=== PATIENT | female | born 1965 | race Two or more races ===

== ENCOUNTER 2016-10-03 22:22 | Observation (INO) | payer OTHER ==
[2016-10-03 22:28] VITALS: BMI 39.4
[2016-10-03] MEDS ORDERED: ASPIRIN 81 MG CHEWABLE TABLETS PO ONE (22:45)
[2016-10-03] MEDS ORDERED: ASPIRIN 81 MG CHEWABLE TABLETS ONE (22:51)
--- NOTE | 2016-10-03 22:54 | PDOC ---
History of Present Illness - General Chief Complaint: Chest Pain Stated Complaint: CHEST PAIN Time Seen by Provider: 10/03/16 22:26 History Source: Patient Exam Limitations: No Limitations - History of Present Illness Initial Comments: 10/03/16 22:49 51 Y F OBESE, NO SIG PMHX OR OTHER RISK FACTORS FOR CAD, PTE C/O SUDDEN ONSET LEFT SIDED CHEST PRESSURE, SOB, AND LT ARM HEAVINESS SINCE 9-9:30 PM TONITE. STS NEVER HAD SIMILAR PAIN IN THE PAST. NO N/V. NO PALPITATIONS. PAIN DOES NOT RADIATE. NOT CHANGED BY ACTIVITY. IN ED. IN NAD. HD STABLE Past History - Past Medical History Allergies/Adverse Reactions: Allergies Allergy/AdvReac Type Severity Reaction Status Date / Time No Known Allergies Allergy Verified 02/20/16 17:40 Home Medications: Ambulatory Orders Lisdexamfetamine Dimesylate [Vyvanse] 80 mg PO DAILY 02/20/16 Multivit-Min/Iron Fum/Folic AC [Qoarm-Huepjwa-Brcsagub Tablet] 1 tab PO DAILY Acetaminophen [Tylenol .Regular Strength -] 650 mg PO Q4H PRN #0 tablet Clonazepam [Klonopin -] 1 mg PO TID PRN #0 tablet MDD 3mg 02/24/16 Lurasidone HCl [Latuda -] 60 mg PO HS tablet 02/24/16 Psychiatric Problems: Yes (ANXIETY,ADHD) - Surgical History Abdominal Surgery: Yes (HERNIA) Appendectomy: Yes - Psycho/Social/Smoking Cessation Hx Anxiety: Yes Suicidal Ideation: No Smoking History: Former smoker Have you smoked in the past 12 months: No If you are a former smoker, when did you quit?: 15 YEARS AGO Information on smoking cessation initiated: No Hx Alcohol Use: No Drug/Substance Use Hx: No Substance Use Type: None Review of Systems - Review of Systems Able to Perform ROS?: Yes Is the patient limited Setswana proficient: No Constitutional: No: Symptoms Reported HEENTM: No: Symptoms Reported Respiratory: Yes: See HPI. No: Symptoms reported Cardiac (ROS): Yes: See HPI. No: Symptoms Reported ABD/GI: No: Symptoms Reported Integumentary: No: Symptoms Reported *Physical Exam - Vital Signs Last Vital Signs Temp Pulse Resp BP Pulse Ox 97.7 F 76 18 146/85 96 10/03/16 22:26 03/22/17 22:26 10/03/16 22:26 10/03/16 22:26 10/03/16 22:26 - Physical Exam General Appearance: Yes: Nourished, Appropriately Dressed. No: Apparent Distress HEENT: positive: Normal ENT Inspection Neck: positive: Supple. negative: Tender, Carotid bruit Respiratory/Chest: positive: Chest Tender (SLIGHTLY OVER LEFT SIDE), Lungs Clear , Normal Breath Sounds. negative: Respiratory Distress Cardiovascular: positive: Regular Rhythm, Regular Rate Gastrointestinal/Abdominal: positive: Normal Bowel Sounds, Soft. negative: Tender Musculoskeletal: positive: Normal Inspection Extremity: positive: Normal Capillary Refill. negative: Pedal Edema Integumentary: positive: Normal Color Neurologic: positive: Fully Oriented, Alert, Normal Mood/Affect, Normal Response , Motor Strength 5/5 Heart Score/ECG Review - History History: Slightly suspicious - Electrocardiogram EKG: Normal - Age Age: 45-65 - Risk Factors Risk Factors Heart Score: Yes Hx Obesity Based on the list above the patient has:: 1-2 risk factors - [place]: Normal - P and PA Prominent R with upright T in V1 (true posterior OR): No - QRS Poor R Wave Progression: No Q Wave Present: No - ST and T Early Repolarization: No Non Specific ST-T Wave changes: No - ECG Impressions Normal ECG: Yes Eligibility Checklist For AMI - INCLUSION CRITERIA Prolonged (>30 minutes)ischemic pain: Yes 12 Lead ECG indicates AMI: No ST elevation >1 mm in at least 2 limb leads: No ST elevation>2 mm in at least 2 contiguous precordial leads: No LBBB with clinical symptoms consistent with an AMI: No - EXCLUSION CRITERIA Active internal bleeding or hx of hemorrhagic diathesis: No Known bleeding diathesis: No Major surgery or serious trauma within the previous 6 weeks: No History of cerebrovascular accident(CVA): No History of central nervous system structural abnormality: No History of malignant hypertension or uncontrolled HTN: No Hemostatic defects secondary to severe hepatic/renal disease: No Diabetic hemorrhagic retinopathy: No or recent delivery(within 6 weeks): No Patients currently receiving oral anticoagulants(INR>2): No ED Treatment Course - RADIOLOGY Radiology Studies Ordered: Category Date Time Status CHEST PA & LAT [RAD] Stat Radiology 10/03/16 22:46 Ordered Progress Note - Progress Note Progress Note: LOW SUSP BUT NO OBVIOUS CAUSE. HISTORY CONCERNING WILL ADMIT TO R/O *DC/Admit/Observation/Transfer Diagnosis at time of Disposition: Chest pain with low risk of acute coronary syndrome - Discharge Dispostion Condition at time of disposition: Stable Admit: Yes
[2016-10-03] MEDS ORDERED: NITROGLYCERIN SUBLINGUAL 1/150 0.4 MG TAB SL ONE (22:57)
[2016-10-03] MEDS ORDERED: NITROGLYCERIN SUBLINGUAL 1/150 0.4 MG TAB ONE (23:11)
[2016-10-03 23:22] LABS: BASOPHIL 2.1 % (0-2.0); EOSINOPHIL 4.1 % (0-4.5); MCH 29.6 pg (25.7-33.7); MCHC 34.7 g/dl (32.0-36.0); MEAN CELL VOLUME 85.4 fl (80-96); MEAN PLT VOLUME 8.7 fl (7.5-11.1); NEUTROPHILS 54.2 % (42.8-82.8); PLATELET COUNT 255 K/MM3 (134-434); RDW 12.5 % (11.6-15.6); WHITE BLOOD COUNT 9.1 K/mm3 (4.0-10.0)
[2016-10-03 23:26] LABS: INR 1.27 (0.82-1.09); PROTHROMBIN TIME (PATIENT) 14.2 SEC (10.2-13.0)
[2016-10-03 23:32] LABS: ALBUMIN 3.7 g/dl (3.5-5.0); ALK PHOS 70 U/L (32-92); ANION GAP 6 (8-16); CALCIUM 8.4 mg/dl (8.4-10.2); CO2 26 mmol/L (22-28); CREATININE 0.7 mg/dl (0.6-1.3); GLUCOSE,RANDOM 129 mg/dl (74-106); MAGNESIUM 1.9 mg/dL (1.8-2.4); SGOT/AST 37 U/L (10-42); SGPT/ALT 21 U/L (10-40); TOT PROT 6.2 g/dl (6.4-8.3)
[2016-10-03 23:33] LABS: CPK(DFH) 200 IU/L (26-140)
[2016-10-03 23:40] LABS: TROPONIN I (DFP) < 0.03 ng/ml (0.03-0.50)
[2016-10-03 23:42] LABS: BILIRUBIN,TOTAL < 0.3 mg/dl (0.2-1.0)
[2016-10-04 07:04] VITALS: BP 120/51; PULSE 80; TEMP 99
[2016-10-04 08:39] LABS: CPK(DFH) 145 IU/L (26-140)
[2016-10-04 09:28] LABS: TROPONIN I (DFP) < 0.03 ng/ml (0.03-0.50)
[2016-10-04] MEDS ORDERED: VYVANSE 40 MG PO SCH (10:00)
--- NOTE | 2016-10-04 12:22 | HP ---
Admitting History and Physical - Primary Care Physician PCP: Maico Morgan - Admission Chief Complaint: chest pain History of Present Illness: 51 y o female came to er for chest pressure, sob , left arm heaviness.no nausea or any other symptom never had thi skind of pain before - Past Medical History ...LMP: 01/29/16 Psych: Yes: Anxiety, Other (adhd) - Smoking History Smoking history: Former smoker Have you smoked in the past 12 months: No If you are a former smoker, when did you quit?: 15 YEARS AGO - Alcohol/Substance Use Hx Alcohol Use: No Home Medications - Allergies Allergies/Adverse Reactions: Allergies Allergy/AdvReac Type Severity Reaction Status Date / Time No Known Allergies Allergy Verified 02/20/16 17:40 - Home Medications Home Medications: Ambulatory Orders Lisdexamfetamine Dimesylate [Vyvanse] 80 mg PO DAILY 02/20/16 Multivit-Min/Iron Fum/Folic AC [Tzwqg-Qqmxlwz-Bmtovquz Tablet] 1 tab PO DAILY Acetaminophen [Tylenol .Regular Strength -] 650 mg PO Q4H PRN #0 tablet Clonazepam [Klonopin -] 1 mg PO TID PRN #0 tablet MDD 3mg 02/24/16 Lurasidone HCl [Latuda -] 60 mg PO HS tablet 02/24/16 Review of Systems - Review of Systems Constitutional: denies: No Symptoms, Chills, Diaphoresis, Fever, Lethargy, Loss of Appetite, Malaise, Night Sweats, Unintentional Wgt. Loss, Weakness, Other Eyes: denies: No Symptoms, Blind Spots, Blurred Vision, Double Vision, Eye Pain , Floaters, Photophobia, Recent Change in Vision, Other HENT: denies: No Symptoms, Difficult Swallowing, Ear Discharge, Ear Pain, Epistaxis, Gingival Bleeding, Hearing Loss, Mouth Swelling, Nasal Congestion, Ocular Prosthesis, Throat Pain, Toothache, Ringing in Ears, Other Neck: denies: No Symptoms, Decreased ROM, Lumps, Pain on Movement, Stiffness, Swollen Glands, Tenderness, Other Cardiovascular: reports: Chest Pain Respiratory: reports: SOB Gastrointestinal: denies: No Symptoms, Abdominal Pain, Bloating, Constipation, Diarrhea, Dysphagia, Indigestion, Melena, Nausea, Rectal Bleeding, Vomiting, Vomiting Blood, Other Genitourinary: denies: No Symptoms, Burning, Discharge, Dysuria, Flank Pain, Frequency, Hematuria, Incontinence, Lesions, Menses, Pain, Testicular Mass, Testicular Pain, Testicular Swelling, Urgency, Vaginal Bleeding, Other Musculoskeletal: denies: No Symptoms, Back Pain, Crepitus, Decreased ROM, Extremity Pain, Joint Pain, Joint Swelling, Muscle Pain, Muscle Cramps, Muscle Weakness, Other Neurological: denies: No Symptoms, Change in LOC, Change in Speech, Confusion, Dizziness, Headache, Incoordination, Numbness, Parasthesia, Pre-Existing Deficit , Seizure, Syncope, Tremors, Unsteady Gait, Weakness, Other Physical Examination Vital Signs: Vital Signs Temperature 99.0 F 10/04/16 07:03 Pulse Rate 80 10/04/16 07:03 Respiratory Rate 17 10/04/16 07:34 Blood Pressure 120/51 10/04/16 07:03 O2 Sat by Pulse Oximetry (%) 95 10/04/16 07:34 Constitutional: Yes: No Distress HENT: Yes: Atraumatic Neck: Yes: Supple Cardiovascular: Yes: Regular Rate and Rhythm Respiratory: Yes: CTA Bilaterally Gastrointestinal: Yes: Normal Bowel Sounds Extremities: Yes: WNL Neurological: Yes: Alert, Oriented Problem List - Problems (1) Chest pain with low risk of acute coronary syndrome Assessment/Plan: tele monitoring serial cardiac enzymes cardiology consult dvt ppx Code(s): R07.9 - CHEST PAIN, UNSPECIFIED (2) ADHD (attention deficit hyperactivity disorder) Assessment/Plan: on meds stable Code(s): F90.9 - ATTENTION-DEFICIT HYPERACTIVITY DISORDER, UNSPECIFIED TYPE (3) Anxiety Code(s): F41.9 - ANXIETY DISORDER, UNSPECIFIED Assessment/Plan Laboratory Tests 10/03/16 10/03/16 10/03/16 23:10 23:10 23:10 WBC 9.1 RBC 4.71 Hgb 13.9 Hct 40.2 MCV 85.4 MCHC 34.7 RDW 12.5 Plt Count 255 MPV 8.7 Neutrophils % 54.2 D Lymphocytes % 33.5 D Monocytes % 6.1 Eosinophils % 4.1 Basophils % 2.1 H D INR 1.27 H Sodium 137 Potassium 3.5 Chloride 105 Carbon Dioxide 26 Anion Gap 6 L BUN 15 D Creatinine 0.7 Creat Clearance w eGFR > 60 Random Glucose 129 H Calcium 8.4 Magnesium 1.9 Total Bilirubin < 0.3 D AST 37 D ALT 21 Alkaline Phosphatase 70 Creatine Kinase Cancelled CK-MB (CK-2) Troponin I Cancelled Total Protein 6.2 L Albumin 3.7 10/03/16 10/04/16 23:10 07:00 WBC RBC Hgb Hct MCV MCHC RDW Plt Count MPV Neutrophils % Lymphocytes % Monocytes % Eosinophils % Basophils % INR Sodium Potassium Chloride Carbon Dioxide Anion Gap BUN Creatinine Creat Clearance w eGFR Random Glucose Calcium Magnesium Total Bilirubin AST ALT Alkaline Phosphatase Creatine Kinase 200 H 145 H CK-MB (CK-2) 4.0 Troponin I < 0.03 L < 0.03 L Total Protein Albumin Active Medications Generic Name Dose Route Start Last Admin Trade Name Freq PRN Reason Stop Dose Admin Lurasidone HCl 40 mg/ 60 mg 10/04/16 22:00 Lurasidone HCl 20 mg PO [facility] Vyvanse 40 Mg 2 each 10/04/16 10:00 Capsule - Patient PO Own Med DAILY [facility]
[2016-10-04 16:06] LABS: TROPONIN I (DFP) < 0.03 ng/ml (0.03-0.50)
[2016-10-04 16:07] LABS: CPK(DFH) 136 IU/L (26-140)
--- NOTE | 2016-10-04 18:25 | DS ---
Physical Examination Vital Signs: Vital Signs Temperature 99.0 F 10/04/16 07:03 Pulse Rate 80 10/04/16 07:03 Respiratory Rate 17 10/04/16 07:34 Blood Pressure 120/51 10/04/16 07:03 O2 Sat by Pulse Oximetry (%) 95 10/04/16 07:34 Discharge Summary Reason For Visit: CHEST PAIN Current Active Problems Chest pain with low risk of acute coronary syndrome (Acute) Condition: Stable - Instructions Diet, Activity, Other Instructions: see quoter 1 week for stress ronaldo Referrals: Marti Fleming MD [Staff Physician] - Maico Morgan MD [Primary Care Provider] - - Home Medications Comprehensive Discharge Medication List: Ambulatory Orders Lisdexamfetamine Dimesylate [Vyvanse] 80 mg PO DAILY 02/20/16 Multivit-Min/Iron Fum/Folic AC [Mjxsx-Dkehiop-Nipjdfdr Tablet] 1 tab PO DAILY Acetaminophen [Tylenol .Regular Strength -] 650 mg PO Q4H PRN #0 tablet Clonazepam [Klonopin -] 1 mg PO TID PRN #0 tablet MDD 3mg 02/24/16 Lurasidone HCl [Latuda -] 60 mg PO HS tablet 02/24/16 cardiology saw pt , cleared , wants stress test as out pt will dc pt home
--- NOTE | 2016-10-04 20:20 | CON.CARD ---
Cardiology Consult (text) - Consultation Consultation Note: CC: CP 51 yo with h/o anxiety, adhd on vyvanse p/w episode of chest pressure, sob , left arm heaviness at work. Works in real estate, regularly walks up and down stairs without limitations or sx's. Pain not worsened by exertion. mild assoc sob, otherwise no other assoc sx's. never had this kind of pain before. currently resolved. no n/v/d. f/c/s headache, rashes, visual disturbances no orthopnea, pnd, le edema, palps, dizziness, claudication bleeding transient neurologic symptoms. - Past Medical History/PShx: per hpi Social hx: Former smoker, no etoh or illicits. Family Hx: no premature cad ROS: pe rhpi Ambulatory Orders Lisdexamfetamine Dimesylate [Vyvanse] 80 mg PO DAILY 02/20/16 Multivit-Min/Iron Fum/Folic AC [Ppmst-Xjnhrrc-Jipzkwkc Tablet] 1 tab PO DAILY Acetaminophen [Tylenol .Regular Strength -] 650 mg PO Q4H PRN #0 tablet Clonazepam [Klonopin -] 1 mg PO TID PRN #0 tablet MDD 3mg 02/24/16 Lurasidone HCl [Latuda -] 60 mg PO HS tablet 02/24/16 Vital Signs - 24 hr 10/03/16 10/03/16 10/03/16 22:26 22:46 23:22 Temperature 97.7 F Pulse Rate 76 73 Pulse Rate [ 75 Apical] Respiratory 18 16 Rate Blood Pressure 146/85 Blood Pressure 121/62 [Arm] O2 Sat by Pulse 96 98 98 Oximetry (%) 10/03/16 10/04/16 10/04/16 23:41 00:00 01:00 Temperature 97.6 F 97.6 F Pulse Rate 71 71 Pulse Rate [ 77 Apical] Respiratory 19 17 19 Rate Blood Pressure 128/66 128/66 Blood Pressure [Arm] O2 Sat by Pulse 99 99 Oximetry (%) 10/04/16 10/04/16 10/04/16 06:23 07:03 07:31 Temperature 99.0 F Pulse Rate 80 Pulse Rate [ Apical] Respiratory 17 17 17 Rate Blood Pressure 120/51 Blood Pressure [Arm] O2 Sat by Pulse 95 95 95 Oximetry (%) 10/04/16 07:34 Temperature Pulse Rate Pulse Rate [ Apical] Respiratory 17 Rate Blood Pressure Blood Pressure [Arm] O2 Sat by Pulse 95 Oximetry (%) Intake & Output 10/02/16 10/03/16 10/04/16 10/05/16 07:59 07:59 07:59 07:59 Intake Total 500 Balance 500 Weight 237 lb NAD, calm JVD flat, neck supple ctab, nl effort rrr nl s1, s2 no mrg + bs soft nt nd ext without e/c/c + dp/pt aaox3 no jaundice diaphoresis CBC, BMP 10/03/16 23:10 10/03/16 23:10 Laboratory Tests 10/03/16 10/03/16 10/04/16 23:10 23:10 07:00 Total Bilirubin < 0.3 D AST 37 D ALT 21 Alkaline Phosphatase 70 Creatine Kinase 200 H 145 H CK-MB (CK-2) 4.0 Troponin I < 0.03 L < 0.03 L Albumin 3.7 10/04/16 15:25 Total Bilirubin AST ALT Alkaline Phosphatase Creatine Kinase 136 CK-MB (CK-2) Troponin I < 0.03 L Albumin EKG: wnl 51 yo with h/o anxiety, adhd on vyvanse p/w episode of chest pressure, sob , left arm heaviness at work. CP - atypical sx's. CE's neg x 3. EKG wnl. - low suscpicion for cardiac pain. OK for d/c home. - In light of patient's ADHD (on vyvanse) would recommend outpatient stress testing to definitively r/o undelrying CAD since that would affect adhd management. Will arrange ADHD - as above.
[2016-10-04] MEDS ORDERED: LURASIDONE HCL 40 MG, LURASIDONE HCL 20 MG PO SCH (22:00)
--- NOTE | 2016-10-05 12:41 | EKG ---
Test Reason : Blood Pressure : / mmHG Vent. Rate : 078 BPM Atrial Rate : 078 BPM P-R Int : 150 ms QRS Dur : 094 ms QT Int : 410 ms P-R-T Axes : 067 053 052 degrees QTc Int : 467 ms NORMAL SINUS RHYTHM NO PREVIOUS ECGS AVAILABLE Confirmed by MD JOSE ROBERTO, CHRIS ([id number]) on 10/05/2016 12:40:52 PM Referred By: DR VENEGAS Confirmed By:CHRIS CID MD
== END 2016-10-04 18:22 | disposition home or self-care (01) ==
LOC: FER 22:22 → FM/S 23:41
PROVIDERS: ADMIT Internal Medicine; ATTEND Internal Medicine
DX: R07.9 Chest pain, unspecified (principal); F41.9 Anxiety disorder, unspecified; F90.9 Attention-deficit hyperactivity disorder, unspecified type; E66.9 Obesity, unspecified; Z68.39 Body mass index [BMI] 39.0-39.9, adult; Z87.891 Personal history of nicotine dependence
CPT/HCPCS: 36415; 71020-TC; 80053; 82550; 82553; 83735; 84484; 85025; 85610; 93005; 99284-25; G0378

== ENCOUNTER → 2019-01-14 | Day surgery (SDC) | payer OTHER | END | disposition home or self-care (01) | LOC: JRADUS 10:20 → JRADUS-SUR 10:20 → EDSTATUS 10:30 | PROVIDERS: ATTEND Obstetrics & Gynecology | PROC: BU18YZZ Fluoroscopy of Uterus and Fallopian Tubes using Other Contrast (ICD-10-PCS; principal; 2019-01-14) | DX: D25.9 Leiomyoma of uterus, unspecified (principal); Z78.0 Asymptomatic menopausal state; N85.4 Malposition of uterus | CPT/HCPCS: 58340; 76831 ==

== ENCOUNTER 2019-08-31 13:07 | Emergency (ER) | payer OTHER ==
--- NOTE | 2019-08-31 13:31 | PDOC ---
History of Present Illness <Radha Llanes - Last Filed: 09/02/19 23:34> - General History Source: Patient Exam Limitations: No Limitations - History of Present Illness Initial Comments: 08/31/19 13:34 54y F hx of chronic b/l leg knees pain secondary to arthritis presents with R leg pain for the past 4 days. Patient states he has been exercising with a agency trainer approximately 4 days ago she was Doing stepping exercises, was rushing and then tripped over a step. She began to feel Right calf, ankle pain since then, it is worse when she is walking around she also had some significantly increased swelling yesterday. 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 The patient denies any focal numbness, tingling, weakness she localizes her discomfort and swelling to the right calf and ankle. She denies any numbness, tingling, fever, chills, chest pain, shortness of breath, hemoptysis. Patient also has a secondary complaint of 2 months of intermittent left shoulder pain particularly after doing exercises she does not have any current discomfort in her shoulder at this time there is no associated numbness, tingling associated with her pain. There was no recent shoulder trauma including falls, injuries, heavy lifting. Patient has no other symptom sAnd has not taken any medications for her pain No prior history of DVT/PE no recent travel or exogenous steroid use, or recent surgery. ROS Constitutional - no reported Fever, Chills, Respiratory: no reported cough, sob, hemoptysis Cardiac: no reported chest pain, palpitations, light headedness, leg swelling Abd/GI: no reported abd pain, nausea, vomiting, Musculskelatal - R calf/leg pain and swelling. no reported back pain, joint swelling skin - no reported bruising, erythema, rash neurological: no reported numbness, focal weakness, tingling, hematologic: no reported easy bruising, easy bleeding Exam: GENERAL: The patient is awake, alert, and fully oriented, Nontoxic - in no acute distress. LUNGS: Breath sounds equal, clear to auscultation bilaterally. No wheezes, no rhonchi, no rales. HEART: Regular rate and rhythm, normal S1 and S2 without murmur, rub or gallop. ABDOMEN: Soft, nontender, No guarding, no rebound. No CVA tenderness EXTREMITIES: Normal range of motion +Pitting edema of the right calf to right ankle, There is ecchymosis noted on the lateral aspect of the right calf that is mildly tender to palpation, There is no erythema, induration, warmth, Fluctuance, crepitus. Negative Homans sign. Dorsi flexion and plantar flexion of the ankle is symmetric. No focal bony tenderness along the knee, tibia/fibula , malleoli or foot. NEUROLOGICAL:senation intact on RLE Suspect possible right calf strain, will obtain Duplex ultrasound to screen for DVT We will give the patient Motrin for pain. Rest, elevation for symptomatic relief <Fernando Lewis - Last Filed: 09/05/19 09:34> - General Chief Complaint: Pain, Acute Stated Complaint: RIGHT CALF PAIN Time Seen by Provider: 08/31/19 13:09 Past History <Radha Llanes - Last Filed: 09/02/19 23:34> - Past Medical History CVA: No COPD: No CHF: No Psychiatric Problems: Yes (ANXIETY,ADHD) - Surgical History Abdominal Surgery: Yes (HERNIA) Appendectomy: Yes - Psycho Social/Smoking Cessation Hx Smoking History: Former smoker Have you smoked in the past 12 months: No If you are a former smoker, when did you quit?: 15 YEARS AGO Information on smoking cessation initiated: No Hx Alcohol Use: Yes (OCASIONAL) Drug/Substance Use Hx: No Substance Use Type: None <Fernando Lewis - Last Filed: 09/05/19 09:34> - Past Medical History Allergies/Adverse Reactions: Allergies Allergy/AdvReac Type Severity Reaction Status Date / Time No Known Allergies Allergy Verified 08/31/19 13:09 Home Medications: Ambulatory Orders Lisdexamfetamine Dimesylate [Vyvanse] 80 mg PO DAILY 02/20/16 Multivit-Min/Iron Fum/Folic AC [Iinoq-Sjbaykm-Jpsvuzwf Tablet] 1 tab PO DAILY Acetaminophen [Tylenol .Regular Strength -] 650 mg PO Q4H PRN #0 tablet Lurasidone HCl [Latuda -] 60 mg PO HS tablet 02/24/16 clonazePAM [Klonopin -] 1 mg PO TID PRN #0 tablet MDD 3mg 02/24/16 *Physical Exam - Vital Signs Last Vital Signs Temp Pulse Resp BP Pulse Ox 97.9 F 73 18 141/75 100 08/31/19 13:08 08/31/19 13:08 08/31/19 13:08 08/31/19 13:08 08/31/19 13:08 <Radha Llanes - Last Filed: 09/02/19 23:34> - Vital Signs Last Vital Signs Temp Pulse Resp BP Pulse Ox 97.9 F 73 18 141/75 100 08/31/19 13:08 08/31/19 13:08 08/31/19 13:08 08/31/19 13:08 08/31/19 13:08 <Fernando Lewis - Last Filed: 09/05/19 09:34> ED Treatment Course - Medications Given in the ED: ED Medications Discontinued Medications Generic Name Dose Route Start Last Admin Trade Name Sol PRN Reason Stop Dose Admin Ibuprofen 400 mg 08/31/19 13:38 08/31/19 13:59 Motrin - PO 08/31/19 13:39 400 mg ONCE ONE Administration <Radha Llanes - Last Filed: 09/02/19 23:34> Medical Decision Making - Medical Decision Making 08/31/19 15:22 US negative pt feeling improved will dc with supportive care - elevation, nsaids, rest pmd fu return precautions were dsicussed I discussed the physical exam findings, ancillary test results and final diagnoses with the patient. I answered all of the patient's questions. The patient was satisfied with the care received and felt comfortable with the discharge plan and treatment plan. The patient will call their primary care physician within 24 hours to arrange follow-up and will return to the Emergency Department with any new, persistent or worsening symptoms. <Fernando Lewis - Last Filed: 09/05/19 09:34> Discharge <Radha Llanes - Last Filed: 09/02/19 23:34> - Discharge Information Problems reviewed: Yes - Admission No <Fernando Lewis - Last Filed: 09/05/19 09:34> - Discharge Information Clinical Impression/Diagnosis: Right leg swelling Condition: Stable Disposition: HOME - Follow up/Referral Referrals: Lion Dey MD [Staff Physician] - - Patient Discharge Instructions Patient Printed Discharge Instructions: DI for Calf Muscle Strain Additional Instructions: Return to the emergency department immediately with ANY new, persistent or worsening symptoms Including any chest pain, shortness of breath, coughing up blood, Numbness, tingling, weakness or any other concerns. Make sure you rest and keep your leg elevated to minimize any swelling. Take Motrin and Tylenol as needed for discomfort. You should follow-up with your primary care doctor or us or Orthopedics for further evaluation of your symptoms if they do not resolve within 4-5 days. Results were discussed with you. Please make sure your doctor reviews the results of your emergency evaluation. Your Emergency Department visit is not complete without a follow up with your doctor. Print Language: CHINESE
[2019-08-31 13:35] VITALS: BP 141/75; PULSE 73; TEMP 97.9; BMI 30.7
[2019-08-31] MEDS ORDERED: IBUPROFEN 400 MG TABLET (FP) PO ONE ×2 (13:38→13:55)
== END 2019-08-31 15:33 | disposition home or self-care (01) ==
LOC: FER 13:07
DX: M79.89 Other specified soft tissue disorders (principal); F41.9 Anxiety disorder, unspecified; F90.9 Attention-deficit hyperactivity disorder, unspecified type; Z87.891 Personal history of nicotine dependence
CPT/HCPCS: 93971-TC; 99284-25

== ENCOUNTER 2019-09-02 22:28 | Emergency (ER) | payer OTHER ==
[2019-09-02 22:36] VITALS: BP 143/70; PULSE 81; TEMP 98.2; BMI 29.9
--- NOTE | 2019-09-02 22:53 | PDOC ---
History of Present Illness - General Chief Complaint: Injury Stated Complaint: R FOOT PAIN/BRUISE Time Seen by Provider: 09/02/19 22:42 - History of Present Illness Initial Comments: This 54-year-old woman with a history of ADHD/anxiety returns to the ER with persistent edema and increased ecchymosis of the right lower leg. Patient was seen here 2 days ago with pain, edema and ecchymosis of the right calf. The patient had sustained an injury to the right calf; patient sustained an injury to this area when she stumbled and missed a step in the gym about 4 days prior to presentation. Work-up including Doppler duplex ultrasound of the right leg showed no evidence of DVT. 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 Subsequently, she noticed new bruising in the hindfoot, below her ankle. No new fall or other trauma sustained. Medications as noted below No known allergies Past History - Past Medical History Allergies/Adverse Reactions: Allergies Allergy/AdvReac Type Severity Reaction Status Date / Time No Known Allergies Allergy Verified 08/31/19 13:09 Home Medications: Ambulatory Orders Lisdexamfetamine Dimesylate [Vyvanse] 80 mg PO DAILY 02/20/16 Multivit-Min/Iron Fum/Folic AC [Qqnon-Dklxqsp-Yhghhrgs Tablet] 1 tab PO DAILY Acetaminophen [Tylenol .Regular Strength -] 650 mg PO Q4H PRN #0 tablet Lurasidone HCl [Latuda -] 60 mg PO HS tablet 02/24/16 clonazePAM [Klonopin -] 1 mg PO TID PRN #0 tablet MDD 3mg 02/24/16 CVA: No COPD: No CHF: No Psychiatric Problems: Yes (ANXIETY,ADHD) - Surgical History Abdominal Surgery: Yes (HERNIA) Appendectomy: Yes - Psycho Social/Smoking Cessation Hx Smoking History: Unknown if ever smoked Have you smoked in the past 12 months: No Number of Cigarettes Smoked Daily: 0 If you are a former smoker, when did you quit?: 15 YEARS AGO Information on smoking cessation initiated: No Hx Alcohol Use: No Drug/Substance Use Hx: No Substance Use Type: None Review of Systems - Review of Systems Able to Perform ROS?: Yes Comments:: 12 point review of systems is negative except for what is noted in the history of present illness *Physical Exam - Vital Signs Last Vital Signs Temp Pulse Resp BP Pulse Ox 98.2 F 81 14 143/70 98 09/02/19 22:32 09/02/19 22:32 09/02/19 22:32 09/02/19 22:32 09/02/19 22:32 - Physical Exam gENERAL: Adult female, mildly anxious but in no acute distress HEAD: Normal with no signs of trauma. EYES: PERRLA, EOMI, sclera anicteric, conjunctiva clear. ENT: Ears normal, nares patent, oropharynx clear without exudates. Dry mucous membranes. NECK: Normal range of motion, supple without lymphadenopathy, JVD, or masses. LUNGS: Breath sounds equal, clear to auscultation bilaterally. No wheezes, and no crackles. HEART:Regular rate and rhythm, normal S1 and S2 without murmur, rub or gallop. ABDOMEN:.normal bowel sounds No guarding,tenderness or rebound.No masses No distention. EXTREMITIES: Right lower extremitymild edema and resolving ecchymosis of the calf with minimal tenderness; no palpable cords Moderate tenderness of Achilles tendon insertion at calcaneus; no step-offs palpated 3 cm x 4 cm nontender, nonedematous ecchymosis below medial and lateral malleolus of the ankle Plantar and dorsal flexion of the right foot intact Remainder of the extremity exam is normal NEUROLOGICAL: Cranial nerves II through XII grossly intact. Normal speech. No focal neurological deficits. MUSCULOSKELETAL: Back non-tender to palpation, no CVA tenderness SKIN: Warm, Dry, normal turgor, no rashes or lesions noted. ED Progress Note - Progress Note Progress Note: This 54-year-old woman, seen here 2 days ago after edema and ecchymosis developed in right calf after injury sustained a few days prior to presentation with negative work-up for DVT, returns after experiencing pain in posterior heel and noticing new ecchymosis in her foot today. Pain was experienced after she dorsiflexed her right foot while walking up a slight incline. Patient had been walking extensively throughout the day. No other injury or fall sustained Exam as noted. Clinical presentation most consistent with soft tissue injury to right lower leg ; likely gastrocnemius muscle strain/minor muscle tear last week and Achilles tendon strain today while walking up a mild incline. Of note, patient walked extensively today and and likely stressed an area that was still recovering from last week's injury. Since patient had Doppler duplex ultrasound study negative for DVT 48 hours ago, no other imaging undertaken. Patient has been advised to apply ice to the painful area of the posterior heel with elevation. Osmel wrap was applied to the calf and lower leg to the ankle. The wrap should be in place during the day and removed at night. She is cautioned against extensive walking or other strenuous activity involving her right lower leg. The patient has a history of chronic bilateral knee issues; she has an orthopedist who is cared for this in the past. She was advised to follow-up with this orthopedist regarding her right lower leg injuries. She should return to the emergency room if she has any increase in pain, swelling or weakness of the right lower leg Discharge - Discharge Information Problems reviewed: Yes Clinical Impression/Diagnosis: Right Achilles tendinitis Gastrocnemius muscle tear Qualifiers: Encounter type: initial encounter Laterality: right Qualified Code(s): S86.111A - Strain of other muscle(s) and tendon(s) of posterior muscle group at lower leg level, right leg, initial encounter Condition: Stable Disposition: HOME - Follow up/Referral - Patient Discharge Instructions Patient Printed Discharge Instructions: DI for Achilles Tendinopathy Additional Instructions: Elevate/ice to right calf and back of foot avoid excessive walking/strenuous activity involving lower leg Osmel wrap to right calf during day for the next 5 days followup with your orthopedist as discussed(call tomorrow) return to ER if swelling/pain worsens - Post Discharge Activity
== END 2019-09-02 23:40 | disposition home or self-care (01) ==
LOC: FER 22:28
DX: M76.61 Achilles tendinitis, right leg (principal); S86.111A Strain of other muscle(s) and tendon(s) of posterior muscle group at lower leg level, right leg, initial encounter; Z87.891 Personal history of nicotine dependence; K46.9 Unspecified abdominal hernia without obstruction or gangrene; F41.9 Anxiety disorder, unspecified; F90.9 Attention-deficit hyperactivity disorder, unspecified type
CPT/HCPCS: 99282-25

== ENCOUNTER 2019-09-27 17:49 | Emergency (ER) | payer OTHER ==
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
[2019-09-27 18:32] VITALS: TEMP 97.8; BMI 30.2
[2019-09-27 18:57] LABS: BASO % 0.6 % (0-2.0); EOS % 2.8 % (0-4.5); HEMATOCRIT 43.7 % (32.4-45.2); HEMOGLOBIN 14.3 GM/dl (10.7-15.3); LYMPH % 36.4 % (8-40); MCH 29.7 pg (25.7-33.7); MCHC 32.7 g/dl (32.0-36.0); MEAN PLT VOLUME 9.8 fl (7.5-11.1); NEUT % 55.2 % (42.8-82.8); PLATELET COUNT 226 K/MM3 (134-434); WHITE BLOOD COUNT 8.2 K/mm3 (4.0-10.8)
[2019-09-27 19:06] LABS: ALBUMIN 3.5 g/dl (3.4-5.0); BILIRUBIN,TOTAL 0.4 mg/dl (0.2-1); CALCIUM 8.4 mg/dl (8.5-10); CREATININE 0.8 mg/dl (0.55-1.3); POTASSIUM 3.5 mmol/L (3.5-5.1); TOT PROT 6.1 g/dl (6.4-8.2)
[2019-09-27 19:10] LABS: ACTIVATED PTT 29.2 SECONDS (25.2-36.5)
[2019-09-27 19:14] LABS: INR 1.49 (0.82-1.09); PROTHROMBIN TIME (PATIENT) 16.5 SEC (10.2-13.0)
[2019-09-27 20:31] LABS: N-TERMINAL BNP 27.9 pg/ml (5-125)
--- NOTE | 2019-09-27 20:43 | PDOC ---
*Physical Exam - Vital Signs Last Vital Signs Temp Pulse Resp BP Pulse Ox 97.8 F 68 18 148/79 98 09/27/19 17:50 09/27/19 17:50 09/27/19 17:50 09/27/19 17:50 09/27/19 17:50 ED Treatment Course - LABORATORY CBC & Chemistry Diagram: 09/27/19 18:54 09/27/19 18:54 - ADDITIONAL ORDERS Additional order review: Laboratory Results 09/27/19 09/27/19 09/27/19 19:00 19:00 18:54 PT with INR INR PTT (Actin FS) D-Dimer 877 H Sodium 139 Potassium 3.5 Chloride 102 Carbon Dioxide 29 Anion Gap 8 BUN 24.0 H Creatinine 0.8 Est GFR (CKD-EPI)AfAm 95.52 Est GFR (CKD-EPI)NonAf 82.42 Random Glucose 120 H Calcium 8.4 L Total Bilirubin 0.4 AST 17 ALT 15 Alkaline Phosphatase 60 Creatine Kinase 45 Troponin I < 0.03 Total Protein 6.1 L Albumin 3.5 09/27/19 18:54 PT with INR 16.5 H INR 1.49 H PTT (Actin FS) 29.2 D-Dimer Sodium Potassium Chloride Carbon Dioxide Anion Gap BUN Creatinine Est GFR (CKD-EPI)AfAm Est GFR (CKD-EPI)NonAf Random Glucose Calcium Total Bilirubin AST ALT Alkaline Phosphatase Creatine Kinase Troponin I Total Protein Albumin 09/27/19 18:54 RBC 4.80 MCV 91.0 MCHC 32.7 RDW 13.0 MPV 9.8 Neutrophils % 55.2 Lymphocytes % 36.4 Monocytes % 5.0 Eosinophils % 2.8 Basophils % 0.6 ED Progress Note - Progress Note Progress Note: 09/27/19 20:22 Care of this patient was transferred to ct from Dr. nath at 1900 hrs. Patient is a 54-year-old female who comes in complaining of some pleuritic type chest pain and shortness of breath. Patient is status postop for Achilles tendon surgery 2 days ago. Patient has a mildly elevated d-dimer and a CT angios of her chest is pending to rule out PE. We will follow-up with CT angios of her chest In addition patient had a test for COVID-19 done that results will not be available for 3 to 4 days Plan is that if patient's CT angios of her chest is negative that she will be discharged and told to self quarantine until the results of her coronavirus test are available. Discharge - Discharge Information Problems reviewed: Yes Clinical Impression/Diagnosis: Chest pain, pleuritic Condition: Stable Disposition: HOME - Admission No - Follow up/Referral - Patient Discharge Instructions Patient Printed Discharge Instructions: [facility]-Coronavirus Instructions Additional Instructions: Return to the emergency department immediately with ANY new, persistent or worsening symptoms. Continue any medications as previously prescribed by your physician. You should follow up with your primary doctor as soon as possible regarding today's emergency department visit. . Please make sure your doctor reviews the results of your emergency evaluation. Thank you for coming to the Emergency Department today for your care. It was a pleasure to see you today. Please note that your evaluation is INCOMPLETE until you follow-up with your doctor. - Post Discharge Activity
[2019-09-27 21:28] VITALS: BP 135/65; PULSE 89
--- NOTE | 2019-09-28 16:11 | EKG ---
Test Reason : Blood Pressure : / mmHG Vent. Rate : 062 BPM Atrial Rate : 062 BPM P-R Int : 144 ms QRS Dur : 094 ms QT Int : 426 ms P-R-T Axes : 051 062 059 degrees QTc Int : 432 ms NORMAL SINUS RHYTHM NORMAL ECG WHEN COMPARED WITH ECG OF 03-OCT-2016 22:36, NO SIGNIFICANT CHANGE WAS FOUND Confirmed by HANH VILLA MD ([id number]) on 09/28/2019 4:11:07 PM Referred By: Taras CASAREZ Confirmed By:HANH VILLA MD
== END 2019-09-28 00:18 | disposition home or self-care (01) ==
LOC: FER 17:49
DX: R07.89 Other chest pain (principal)
CPT/HCPCS: 36415; 71045-TC-FY; 71275-TC; 80053; 82550; 83880; 84484; 85025; 85379; 85610; 85730; 87798; 93005; 99285-25; Q9967; U0002

== ENCOUNTER 2020-03-18 17:28 | Emergency (ER) | payer OTHER ==
--- NOTE | 2020-03-18 17:55 | TELE ---
HPI Do you have fever,cough or shortness of breath?: Yes - General Reason For Visit: VIRTUAL VISIT History Source: Patient Exam Limitations: No Limitations - History of Present Illness Timing/Duration: 4-6 hours (weakness) Severity: reports: mild Associated Symptoms: reports: weakness 03/18/20 17:55 55-year-old female presents via telehealth for COVID testing. Patient states daughter is currently with a fever cough and weakness for the past 2 days pending cover testing and now this morning she woke up with generalized fatigue concerning for infection. Patient denies fever denies history of immunosuppression. Patient states cannot quarantine from her daughter since she is a child at the age of 14 Past History - Travel History Traveled outside of the country in the last 30 days: Yes Close contact w/someone who was outside of country & ill: No - Medical History Allergies/Adverse Reactions: Allergies Allergy/AdvReac Type Severity Reaction Status Date / Time No Known Allergies Allergy Verified 09/27/19 17:49 Home Medications: Ambulatory Orders Clonazepam 1 mg PO ASDIR 09/27/19 Ketorolac Tromethamine 1 tab PO ASDIR 09/27/19 Lisdexamfetamine Dimesylate [Vyvanse] 1 cap PO DAILY 09/27/19 Lurasidone HCl [Latuda] 1 tab PO DAILY 09/27/19 Raloxifene HCl 1 tab PO ASDIR 09/27/19 CVA: No COPD: No CHF: No Psychiatric Problems: Yes (ANXIETY,ADHD) - Surgical History Abdominal Surgery: Yes (HERNIA) Appendectomy: Yes - Psycho-Social/Smoking History Patient Lives Alone: No Lives with/in: spouse/SO Smoking History: Unknown if ever smoked Have you smoked in the past 12 months: No Number of Cigarettes Smoked Daily: 0 If you are a former smoker, when did you quit?: 15 YEARS AGO Review of Systems - Review of Systems Able to Perform ROS?: No Limited Khmer proficient: No Constitutional: Yes: Weakness HEENTM: No: Symptoms Reported Respiratory: No: Symptoms reported Cardiac (ROS): No: Symptoms Reported : No: Symptoms Reported Musculoskeletal: No: Symptoms Reported Neurological: Yes: Weakness Endocrine: No: Symptoms Reported Hematologic/Lymphatic: No: Symptoms Reported *Physical Exam - Physical Exam General Appearance: Yes: Nourished HEENT: positive: EOMI Neck: negative: Decreased range of motion Respiratory/Chest: negative: Respiratory Distress Gastrointestinal/Abdominal: negative: Distended Extremity: positive: Normal Inspection Integumentary: positive: Normal Color Neurologic: positive: Motor Strength 5/5 (ambulatory) - Medical Decision Making 03/18/20 17:56 Chief complaint: Patient requesting cover testing due to feelings of weakness and concerned that her daughter is positive for COVID. Patient has no other complaints. Exam: Normal and limited PE Plan : COVID screening sent Discharge Diagnosis at time of Disposition: Encounter for screening laboratory testing for COVID-19 virus - Referrals Follow-up Referral(s): Kalin Ruvalcaba [Primary Care Provider] - - Patient Instructions - Discharge Disposition: HOME Condition at time of Disposition: Good
== END 2020-03-18 18:16 | disposition home or self-care (01) ==
LOC: JVIRT 17:28
DX: Z11.59 Encounter for screening for other viral diseases (principal)
CPT/HCPCS: Q3014-GT; U0003

== ENCOUNTER 2020-03-27 16:28 | Emergency (ER) | payer OTHER ==
--- NOTE | 2020-03-27 17:26 | TELE ---
HPI Do you have fever,cough or shortness of breath?: No - General History Source: Patient Exam Limitations: No Limitations - History of Present Illness 03/27/20 17:21 Patient is a 55-year-old female who participated in a virtual urgent care visit for interest in having a COVID test. She states over the last 2 days she has been having severe abdominal cramping and sweats. She denies any vomiting or diarrhea. She states overnight she felt nauseated but did not vomit. She states today her abdominal cramping is better. She denies any known COVID contacts. 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 She denies any recent travel outside of the or outside of [facility]. The patient states that her daughter was tested for COVID last week, as was she, but they were both negative. Her daughter did have COVID symptoms and was seen in the hospital. The patient states she is concerned that she had a false negative. The patient states she has not had any fevers but has been having sweats. She denies any past medical history or allergies to medications. Past History - Medical History Allergies/Adverse Reactions: Allergies Allergy/AdvReac Type Severity Reaction Status Date / Time No Known Allergies Allergy Verified 09/27/19 17:49 Home Medications: Ambulatory Orders Clonazepam 1 mg PO ASDIR 09/27/19 Ketorolac Tromethamine 1 tab PO ASDIR 09/27/19 Lisdexamfetamine Dimesylate [Vyvanse] 1 cap PO DAILY 09/27/19 Lurasidone HCl [Latuda] 1 tab PO DAILY 09/27/19 Raloxifene HCl 1 tab PO ASDIR 09/27/19 CVA: No COPD: No CHF: No Psychiatric Problems: Yes (ANXIETY,ADHD) - Surgical History Abdominal Surgery: Yes (HERNIA) Appendectomy: Yes - Psycho-Social/Smoking History Smoking History: Unknown if ever smoked Have you smoked in the past 12 months: No Number of Cigarettes Smoked Daily: 0 If you are a former smoker, when did you quit?: 15 YEARS AGO Review of Systems - Review of Systems Comments:: 03/27/20 17:22 - Review of Systems Able to Perform ROS?: Yes Constitutional: No: Fever, Chills, Loss of Appetite, Night Sweats, Weakness; positive: Sweats, COVID testing HEENTM: No: Eye Pain, Vision changes, Ear Pain, Throat Pain, Throat Swelling, Mouth Pain, Difficulty Swallowing Respiratory: No: Cough, Shortness of Breath, Wheezing, Sputum Production Cardiac (ROS): No: Chest Pain, Chest Tightness, Palpitations, Irregular Heart Beat, Edema ABD/GI: No: Nausea, Vomiting, Abdominal Pain, Diarrhea; positive: Abdominal cramping : No Dysuria, No Hematuria, No Frequency, No Urgency, No Vaginal Discharge/Pain, No Penile Discharge/Pain Musculoskeletal: No: Muscle Pain, Back Pain, Joint Pain, Muscle Weakness, Neck Pain Integumentary: No: Lesions, Rash Neurological: No: Headache, Numbness, Tingling, Weakness, Speech Difficulties *Physical Exam - Physical Exam 03/27/20 17:22 - Physical Exam General Appearance: Nourished, Appropriately Dressed, No Distress HEENT: EOMI, Normal Voice, Hearing Grossly Normal Neck: No Decreased range of motion Respiratory/Chest: Normal chest excursion appreciated, No Accessory Muscle Use Gastrointestinal/Abdominal: No distention Musculoskeletal: Normal Inspection Integumentary: Normal Color, Dry. No Rash Neurologic: manager mortgage II-XII NML intact, Fully Oriented, Alert, Normal Mood/Affect, Normal Response - Medical Decision Making 03/27/20 17:23 Assessment: Patient is a 55-year-old female who has been having abdominal cramping and sweats who is requesting a COVID test. Plan: -COVID swab ordered -Patient advised to proceed to our [facility] for swapping -I have discussed with the patient that she should be evaluated by her primary doctor, urgent care or emergency department to further assess her abdominal c ramping, sweats and symptoms. She states she would still like the COVID test and if she continues to feel badly, she will be evaluated for her abdominal cramping. -COVID counseling given, isolation precautions reviewed -Patient understands and agrees with this treatment plan Discharge Diagnosis at time of Disposition: Counseled about COVID-19 virus infection, Abdominal cramping - Referrals - Patient Instructions Discharge Instructions: [facility]-Coronavirus Instructions, [facility] COVID-19 Isolation Protocol Additional Discharge Instructions: You were seen via a telehealth visit and tested for COVID today. You should follow isolation precautions as per [place] State guidelines. Thank you for participating in our telehealth medicine program. If you have any worsening symptoms such as high fever, shaking chills, profuse vomiting or any other worsening symptoms you should go to your local emergency department immediately or follow up with your primary care doctor immediately. If you become symptomatic: Take Tylenol 650 mg every 6 hours as needed for fever or pain. You may take Robitussin or other [id number]-hpqcwyn cough syrup. Follow the dosing instructions on the bottle. Warm tea, honey, and salt water gargles may help your symptoms. Please take precautions and self quarantine for 2 weeks and follow-up with your primary care doctor and the Department of Health. Return to the nearest emergency department for shortness of breath, difficulty breathing, chest pain, or if you have any changes in your symptoms. - Discharge Disposition: HOME Condition at time of Disposition: Stable
== END 2020-03-27 17:26 | disposition home or self-care (01) ==
LOC: JVIRT 16:28
DX: R10.84 Generalized abdominal pain (principal); Z11.59 Encounter for screening for other viral diseases
CPT/HCPCS: Q3014-GT; U0003

== ENCOUNTER 2020-06-04 20:09 | Emergency (ER) | payer OTHER | END 2020-06-04 20:31 | disposition home or self-care (01) | LOC: JVIRT 20:09 | DX: R05 Cough (principal); Z11.59 Encounter for screening for other viral diseases | CPT/HCPCS: C9803; Q3014-GT; U0003 ==

== ENCOUNTER 2020-08-14 19:15 | Emergency (ER) | payer OTHER | END 2020-08-14 19:25 | disposition home or self-care (01) | LOC: JVIRT 19:15 | DX: Z11.52 Encounter for screening for COVID-19 (principal) | CPT/HCPCS: C9803; G2251-GT; Q3014-GT; U0003 ==

== ENCOUNTER 2020-08-22 19:19 | Emergency (ER) | payer OTHER ==
[2020-08-22 19:40] VITALS: BP 114/71; PULSE 83; TEMP 98
[2020-08-22] MEDS ORDERED: oxyCODONE HCL 5 MG TABLET PO ONE (20:07)
[2020-08-22] MEDS ORDERED: oxyCODONE HCL 5 MG TABLET ONE (20:13)
== END 2020-08-22 20:22 | disposition home or self-care (01) ==
LOC: FER 19:19
DX: L76.82 Other postprocedural complications of skin and subcutaneous tissue (principal)
CPT/HCPCS: 99284-25

== ENCOUNTER 2020-08-24 14:46 | Emergency (ER) | payer OTHER | END 2020-08-24 15:35 | disposition home or self-care (01) | LOC: JVIRT 14:46 | DX: Z11.52 Encounter for screening for COVID-19 (principal); R53.83 Other fatigue | CPT/HCPCS: C9803; G2251-GT; Q3014-GT; U0003 ==

== ENCOUNTER 2020-11-09 09:55 | Emergency (ER) | payer OTHER ==
[2020-11-10 05:11] LABS: SARS-CoV-2 NAA Not Detected (Not Detected)
== END 2020-11-09 11:42 | disposition home or self-care (01) ==
LOC: JVIRT 09:55
DX: Z11.52 Encounter for screening for COVID-19 (principal)
CPT/HCPCS: C9803; G2251-GT; Q3014-GT; U0003; U0005

== ENCOUNTER 2021-07-05 18:16 | Emergency (ER) | payer OTHER ==
[2021-07-05 18:42] VITALS: BP 145/76; PULSE 87; TEMP 98.2; BMI 36.6
== END 2021-07-05 18:58 | disposition home or self-care (01) ==
LOC: FER 18:16
DX: J06.9 Acute upper respiratory infection, unspecified (principal)
CPT/HCPCS: 87651; 87804; 87807; 99283-25; C9803; U0003; U0005

== ENCOUNTER 2022-02-05 18:38 | Emergency (ER) | payer OTHER ==
[2022-02-05 18:45] VITALS: BP 157/93; PULSE 96; RESP 18; TEMP 98.3; BMI 42.4
[2022-02-05] MEDS ORDERED: TETRACAINE 0.5% OPHTH SOLN 2 ML BOTTLE ONE (19:54)
[2022-02-05] MEDS ORDERED: FLUORESCEIN NA 1 EA STRIP ONE (19:54)
== END 2022-02-05 20:05 | disposition home or self-care (01) ==
LOC: FER 18:38
DX: H11.32 Conjunctival hemorrhage, left eye (principal)
CPT/HCPCS: 99283-25

== ENCOUNTER 2022-03-10 01:07 | Emergency (ER) | payer OTHER ==
[2022-03-10 01:29] VITALS: RESP 20; BMI 41.9
[2022-03-10 02:54] VITALS: BP 165/93; PULSE 78; TEMP 97.7
== END 2022-03-10 03:19 | disposition home or self-care (01) ==
LOC: JER 01:07
DX: H57.12 Ocular pain, left eye (principal)
CPT/HCPCS: 99283-25

== ENCOUNTER 2022-04-09 23:17 | Emergency (ER) | payer OTHER ==
[2022-04-09 23:37] VITALS: BP 129/90; PULSE 90; RESP 18; TEMP 99.5; BMI 41.5
[2022-04-10] MEDS ORDERED: ACETAMINOPHEN 325 MG TABLET (FP) PO ONE (00:28)
[2022-04-10] MEDS ORDERED: ACETAMINOPHEN 325 MG TABLET (FP) ONE (00:51)
== END 2022-04-10 01:11 | disposition home or self-care (01) ==
LOC: JERFT 23:17
DX: U07.1 COVID-19 (principal)
CPT/HCPCS: 99283-25

== ENCOUNTER 2022-08-14 20:18 | Emergency (ER) | payer OTHER ==
[2022-08-14 20:37] VITALS: BP 150/87; PULSE 89; RESP 18; TEMP 97.8; BMI 41.5
== END 2022-08-14 21:56 | disposition home or self-care (01) ==
LOC: FER 20:18
DX: R00.0 Tachycardia, unspecified (principal)
CPT/HCPCS: 93005; 99283-25

== ENCOUNTER 2023-04-30 04:13 | Emergency (ER) | payer OTHER ==
[2023-04-30 04:32] VITALS: RESP 20; TEMP 98.6; BMI 37.0
[2023-04-30 05:05] VITALS: BP 160/94; PULSE 66
[2023-04-30 05:49] LABS: HEMATOCRIT 41.5 % (32.4-45.2); HEMOGLOBIN 14.1 GM/dL (10.7-15.3); MCH 28.8 pg (25.7-33.7); MEAN CELL VOLUME 84.6 fl (80-96); MEAN PLT VOLUME 9.7 fl (7.5-11.1); PLATELET COUNT 243 10^3/uL (134-434); RDW 13.9 % (11.6-15.6); WHITE BLOOD COUNT 9.8 K/mm3 (4.0-10.0)
[2023-04-30 05:51] LABS: POTASSIUM 3.1 mmol/L (3.5-5.1)
[2023-04-30 05:53] LABS: BLOOD UREA NITROGEN 22.2 mg/dL (7-18); CALCIUM 8.5 mg/dL (8.5-10.1)
[2023-04-30 05:54] LABS: ALBUMIN 3.2 g/dl (3.4-5.0)
[2023-04-30 05:57] LABS: CREATININE 0.8 mg/dL (0.55-1.3)
[2023-04-30 05:58] LABS: BILIRUBIN,TOTAL 0.4 mg/dL (0.2-1); TOT PROT 6.2 g/dl (6.4-8.2)
== END 2023-04-30 09:04 | disposition home or self-care (01) ==
LOC: FER 04:13
DX: R07.81 Pleurodynia (principal); B34.9 Viral infection, unspecified; F41.9 Anxiety disorder, unspecified; Z20.822 Contact with and (suspected) exposure to COVID-19
CPT/HCPCS: 0241U-QW; 36415; 71045-TC-FY; 71275-TC; 80053; 82550; 84484; 85027; 93005; 99285-25; Q9967

== ENCOUNTER 2024-11-09 20:13 | Emergency (ER) | payer OTHER ==
[2024-11-09 20:38] VITALS: BP 145/80; RESP 19; TEMP 98.4; BMI 44.9
[2024-11-09 21:17] LABS: ABSOLUTE IMMATURE GRANULOCYTES 0.01 x10^3/uL (0.0-0.031); BASOPHILS # 0.04 x10^3/uL (0.01-0.08); EOSINOPHILS # 0.29 x10^3/uL (0.04-0.36); HEMATOCRIT 41.8 % (34.1-44.9); HEMOGLOBIN 14.4 g/dL (11.2-15.7); MCHC 34.4 g/dl (32.2-35.5); MEAN CELL VOLUME 85.7 fl (79.4-94.8); MEAN PLT VOLUME 10.7 fl (9.4-12.3); MONOCYTE # 0.75 x10^3/uL (0.24-0.86); MONOCYTE % 7.8 % (4.7-12.5); PLATELET COUNT 295 x10^3/uL (182-369)
[2024-11-09 21:18] VITALS: PULSE 90
[2024-11-09 21:36] LABS: ALBUMIN 4.4 g/dl (3.4-5.0); ALK PHOS 97 U/L (45-117); ANION GAP 9 mmol/L (4-13); BILIRUBIN,TOTAL 0.9 mg/dl (0.2-1); CALCIUM 9.4 mg/dl (8.5-10.1); CHLORIDE 104 mmol/L (98-107); CO2 27 mmol/L (21-32); CREATININE 1.2 mg/dl (0.6-1.3); GLUCOSE,RANDOM 120 mg/dl (74-106); POTASSIUM 3.9 mmol/L (3.5-5.1); SGOT/AST 22 U/L (15-37); SGPT/ALT 33 U/L (7-52); SODIUM 140 mmol/L (136-145); TOT PROT 6.7 g/dl (6.4-8.2)
== END 2024-11-09 22:10 | disposition home or self-care (01) ==
LOC: FER 20:13
DX: R00.2 Palpitations (principal)
CPT/HCPCS: 36415; 71045-TC-FY; 80053; 84484; 85025; 93005; 99285-25